=== PATIENT | female | born 1980 | race Caucasian/White ===

== ENCOUNTER 2021-04-22 07:36 | Day surgery (SDC) | payer OTHER ==
[2021-04-20 15:58] VITALS: BMI 33.6
--- NOTE | 2021-04-22 06:45 | P.HPOB ---
History of Present Illness H&P Date: 04/22/21 Chief Complaint: family planning 40-year-old presents for laparoscopic tubal ligation. Review of Systems All systems: negative Constitutional: Denies chills, Denies fever Eyes: denies blurred vision, denies pain Ears, nose, mouth and throat: Denies headache, Denies sore throat Cardiovascular: Denies chest pain, Denies shortness of breath Respiratory: Denies cough Gastrointestinal: Denies abdominal pain, Denies diarrhea, Denies nausea, Denies vomiting Genitourinary: Denies dysuria, Denies hematuria Musculoskeletal: Denies myalgias Integumentary: Denies pruritus, Denies rash Neurological: Denies numbness, Denies weakness Psychiatric: Denies anxiety, Denies depression Endocrine: Denies fatigue, Denies weight change Past Medical History Past Medical History: Diabetes Mellitus Additional Past Medical History / Comment(s): HAD DIABETES-RESOLVED WITH GASTRIC BYPASS. MIGRAINES History of Any Multi-Drug Resistant Organisms: None Reported Past Surgical History: Bariatric Surgery Additional Past Surgical History / Comment(s): BARIATRIC SX 2017 Past Anesthesia/Blood Transfusion Reactions: Previous Problems w/ Anesthesia Additional Past Anesthesia/Blood Transfusion Reaction / Comment(s): HAD LOW B/P WITH HIGH HEART RATE WITH GASTRIC BYPASS Smoking Status: Never smoker - Past Family History Mother History Unknown: Yes Additional Family Medical History / Comment(s): PT ADOPTED -BIOLOGICAL FAMILY HX UNKNOWN Father History Unknown: Yes Medications and Allergies Home Medications Medication Instructions Recorded Confirmed Type Topiramate [Topamax] 100 mg PO BID 04/20/21 04/20/21 History buPROPion XL [Wellbutrin XL] 150 mg PO DAILY 04/20/21 04/20/21 History Allergies Allergy/AdvReac Type Severity Reaction Status Date / Time Penicillins Allergy Unknown Verified 04/20/21 15:51 Childhood Exam Osteopathic Statement: *. No significant issues noted on an osteopathic structural exam other than those noted in the History and Physical/Consult. Heart: Regular rate and rhythm Lungs: Clear to auscultation bilaterally Abdomen: Soft, nontender Extremities: Negative Homans sign Assessment and Plan (1) Family planning Status: Acute Code(s): Z30.09 - ENCOUNTER FOR OTH GENERAL CNSL AND ADVICE ON CONTRACEPTION SNOMED Code(s): 317474222 Plan: Laparoscopic tubal ligation
[~2021-04-22 07:36] MED LIST: Pre Op ABX Message 1 EACH MISC MISCELLANE ONE
[2021-04-22] MEDS ORDERED: ONDANSETRON 4 MG/2 ML VIAL ONE (08:24)
[2021-04-22] MEDS ORDERED: LIDOCAINE 1% (10MG/ML) FOR IV START INTRADERMA ONE (08:30)
[2021-04-22] MEDS ORDERED: LACTATED RINGERS 1,000 ML IV ONE ×2 (08:30→10:50)
[2021-04-22] MEDS ORDERED: MIDAZOLAM 2 MG/2 ML VIAL IV ONE (08:40)
[2021-04-22] MEDS ORDERED: DEXAMETHASONE SOD PHOSPHATE 4 MG/ML 1 ML VIAL IV ONE (08:40)
[2021-04-22] MEDS ORDERED: PROPOFOL 10 MG/ML 20 ML VIAL IV ONE (10:18)
[2021-04-22] MEDS ORDERED: GLYCOPYRROLATE 0.2 MG/ML 2 ML VIAL ONE (10:18)
[2021-04-22] MEDS ORDERED: fentaNYL (PF) 50 MCG/ML 2 ML AMP ONE (10:18)
[2021-04-22] MEDS ORDERED: SUCCINYLCHOLINE CHLORIDE 100 MG/5 ML SYR IV ONE (10:18)
[2021-04-22] MEDS ORDERED: ROCURONIUM 10 MG/ML (5 ML VIAL) IV ONE (10:18)
[2021-04-22] MEDS ORDERED: KETOROLAC 15 MG/ML 1 ML VIAL ONE (10:18)
[2021-04-22] MEDS ORDERED: NEOSTIGMINE 1 MG/ML 10 ML VIAL ONE (10:18)
[2021-04-22] MEDS ORDERED: HYDROmorphone (PF) 1 MG/ML ONE (10:18)
[2021-04-22] MEDS ORDERED: MIDAZOLAM 2 MG/2 ML VIAL ONE (10:18)
[2021-04-22] MEDS ORDERED: LIDOCAINE 1% INJ 10MG/ML (20 ML MDV) ONE (10:18)
[2021-04-22] MEDS ORDERED: BUPIVACAINE (PF) 0.25% 30 ML VIAL SQ ONE ×2 (10:39→10:44)
[2021-04-22 10:59] VITALS: TEMP 98.8
[2021-04-22 11:03] LABS: Glucose,Whole Blood 225 mg/dL (75-99)
[2021-04-22] MEDS ORDERED: diphenhydrAMINE 50 MG/ML 1 ML VIAL ONE (11:25)
[2021-04-22] MEDS ORDERED: diphenhydrAMINE 50 MG/ML 1 ML VIAL IVP ONE (11:27)
[2021-04-22 11:55] VITALS: RESP 16
[2021-04-22 12:06] VITALS: BP 113/72; PULSE 72
--- NOTE | 2021-04-22 12:07 | P.OP ---
Date of Procedure: 04/22/21 Preoperative Diagnosis: 1. family planning Postoperative Diagnosis: 1. family planning Procedure(s) Performed: Laparoscopic tubal ligation Anesthesia: ANNA Surgeon: Anna Kern Estimated Blood Loss (ml): 5 IV fluids (ml): 400 Urine output (ml): 230 Pathology: none sent Condition: stable Disposition: PACU Operative Findings: Normal uterus, tubes, ovaries. Description of Procedure: Patient was taken to the operating room where general anesthesia was obtained without difficulty. She was prepped and draped in normal sterile fashion in the dorsal lithotomy position, legs placed in the Curtis stirrups. Bladder drained of all urine. [place] speculum placed in the vagina and the anterior lip the cervix was grasped with single-tooth tenaculum. The uterus is sounded to 7 cm and the kroner manipulator was placed. Attention was then turned to the abdomen and gloves were changed. A 10 mm infraumbilical incision was made the scalpel and 10 mm optical trocar was placed under direct visualization. A 5 mm suprapubic Incision was made and a 5 mm optical trocar was placed under direct visualization. Survey of the pelvis revealed normal uterus tubes and ovaries. The left fallopian tube was grasped with a Kleppinger and fulgurated 2-3 cm on this side in the ampullar portion. The right fallopian tube was grasped with a Kleppinger and fulgurated 2-3 cm in the ampullar portion. All instruments were then removed from the abdomen and vagina. The 10 mm infraumbilical incision was closed with 0 Vicryl and the fascial layer and then 4-0 Vicryl in a subcuticular fashion. The 5 mm incision was closed with 4-0 Vicryl in a subcuticular fashion. Patient tolerated procedure well, sponge and instrument counts correct 2 and she was taken to recovery room in stable condition.
== END 2021-04-22 13:05 | disposition home or self-care (01) ==
LOC: OR 07:36
PROVIDERS: ATTEND Obstetrics & Gynecology
DX: Z30.2 Encounter for sterilization (principal); Z98.84 Bariatric surgery status; Z79.818 Long term (current) use of other agents affecting estrogen receptors and estrogen levels; Z79.899 Other long term (current) drug therapy; Z88.0 Allergy status to penicillin
CPT/HCPCS: 81025; 58670; J2250; J1200; J1100; J2710; J2405; J2001; J3010; J1170; J1885; J0330; J2704

== ENCOUNTER 2021-06-01 04:15 | Emergency (ER) | payer OTHER ==
[2021-06-01 04:29] VITALS: TEMP 98.8
--- NOTE | 2021-06-01 04:39 | ED ---
Psych HPI - General Chief Complaint: Psychiatric Symptoms Stated Complaint: Altered mental status Time Seen by Provider: 06/01/21 04:29 Source: patient, EMS Mode of arrival: EMS - History of Present Illness Initial Comments: This patient is a 40-year-old woman who presents to the hospital to be evaluated for which she thinks is a reaction to some cannabinoids that she smoked. Patient states that she started feeling she will was . MD Complaint: altered mental status -: hour(s) Associated Psychiatric Symptoms: racing thoughts, delusions Quality: intermittent Improves With: none Worsens With: drug use Context: recent drug abuse - Related Data Home Medications Medication Instructions Recorded Confirmed Topiramate [Topamax] 100 mg PO BID 04/20/21 04/20/21 buPROPion XL [Wellbutrin XL] 150 mg PO DAILY 04/20/21 04/20/21 Previous Rx's Medication Instructions Recorded Acetaminophen-Codeine 300-30mg 2 tab PO Q6H PRN #20 tablet 04/22/21 [Tylenol #3] Ibuprofen [Motrin] 600 mg PO Q6HR PRN #30 tab 04/22/21 Allergies Allergy/AdvReac Type Severity Reaction Status Date / Time Penicillins Allergy Unknown Verified 04/22/21 08:02 Childhood Review of Systems ROS Statement: Those systems with pertinent positive or pertinent negative responses have been documented in the HPI. ROS Other: All systems not noted in ROS Statement are negative. Past Medical History Past Medical History: Diabetes Mellitus Additional Past Medical History / Comment(s): HAD DIABETES-RESOLVED WITH GASTRIC BYPASS. MIGRAINES History of Any Multi-Drug Resistant Organisms: None Reported Past Surgical History: Bariatric Surgery Additional Past Surgical History / Comment(s): BARIATRIC SX 2017 Past Anesthesia/Blood Transfusion Reactions: Previous Problems w/ Anesthesia Additional Past Anesthesia/Blood Transfusion Reaction / Comment(s): HAD LOW B/P WITH HIGH HEART RATE WITH GASTRIC BYPASS Past Psychological History: Anxiety Smoking Status: Never smoker Past Alcohol Use History: None Reported Past Drug Use History: Marijuana - Past Family History Mother History Unknown: Yes Additional Family Medical History / Comment(s): PT ADOPTED -BIOLOGICAL FAMILY HX UNKNOWN Father History Unknown: Yes Course Vital Signs 06/01/21 06/01/21 04:18 06:17 Temperature 98.8 F Pulse Rate 115 H 98 Respiratory 22 24 Rate Blood Pressure 114/90 O2 Sat by Pulse 99 99 Oximetry Disposition Clinical Impression: Drug-induced psychotic disorder Disposition: HOME SELF-CARE Condition: Good Instructions (If sedation given, give patient instructions): Cannabis Abuse (ED) Is patient prescribed a controlled substance at d/c from ED?: No Referrals: Mialna Wheeler [Primary Care Provider] - 1-2 days
[2021-06-01 08:02] VITALS: BP 132/84; PULSE 84; RESP 22
== END 2021-06-01 08:02 | disposition home or self-care (01) ==
LOC: EC 04:15
DX: F12.959 Cannabis use, unspecified with psychotic disorder, unspecified (principal); E11.9 Type 2 diabetes mellitus without complications; F41.9 Anxiety disorder, unspecified; F12.90 Cannabis use, unspecified, uncomplicated; Z79.1 Long term (current) use of non-steroidal anti-inflammatories (NSAID); Z79.899 Other long term (current) drug therapy
CPT/HCPCS: 99285

== ENCOUNTER 2021-06-28 16:25 | Emergency (ER) | payer OTHER ==
--- NOTE | 2021-06-28 16:51 | ED ---
Chest Pain HPI - General Stated Complaint: chest pain Time Seen by Provider: 06/28/21 16:25 Source: patient, EMS, RN notes reviewed Mode of arrival: EMS Limitations: no limitations - History of Present Illness Initial Comments: 40-year-old female history of anxiety who states she started Zoloft 3 days ago was told that she started developing chest pain coming get evaluated. She was playing with her estranged upper taking soccerball today when he started developing left-sided chest pain sharp in nature 5-6/10 severity no fevers chills nausea vomiting sweats or other symptoms she currently is pain-free she is not recall any incident S. She's had no cough fever no phlegm production. There is family history heart disease but only in the later age there is a history of blood clots and family however. No other current complaints or modifying factors MD Complaint: chest pain - Related Data Home Medications Medication Instructions Recorded Confirmed Topiramate [Topamax] 100 mg PO BID 04/20/21 04/20/21 buPROPion XL [Wellbutrin XL] 150 mg PO DAILY 04/20/21 04/20/21 Previous Rx's Medication Instructions Recorded Acetaminophen-Codeine 300-30mg 2 tab PO Q6H PRN #20 tablet 04/22/21 [Tylenol #3] Ibuprofen [Motrin] 600 mg PO Q6HR PRN #30 tab 04/22/21 Allergies Allergy/AdvReac Type Severity Reaction Status Date / Time Penicillins Allergy Unknown Verified 06/28/21 16:33 Childhood Review of Systems ROS Statement: Those systems with pertinent positive or pertinent negative responses have been documented in the HPI. ROS Other: All systems not noted in ROS Statement are negative. EKG Findings - EKG Results: EKG: interpreted by [facility], WNL, sinus rhythm, normal axis, normal QRS, normal ST/T, no acute changes (Normal sinus rhythm a 91. Interval 142 QRS duration 80 QT since QTC 362/[address]-T wave changes) Past Medical History Past Medical History: Diabetes Mellitus Additional Past Medical History / Comment(s): HAD DIABETES-RESOLVED WITH GASTRIC BYPASS. MIGRAINES History of Any Multi-Drug Resistant Organisms: None Reported Past Surgical History: Bariatric Surgery, Tubal Ligation Additional Past Surgical History / Comment(s): BARIATRIC SX 2017 Past Anesthesia/Blood Transfusion Reactions: Previous Problems w/ Anesthesia Additional Past Anesthesia/Blood Transfusion Reaction / Comment(s): HAD LOW B/P WITH HIGH HEART RATE WITH GASTRIC BYPASS Past Psychological History: Anxiety Smoking Status: Never smoker Past Alcohol Use History: None Reported Past Drug Use History: Marijuana - Past Family History Mother History Unknown: Yes Additional Family Medical History / Comment(s): PT ADOPTED -BIOLOGICAL FAMILY HX UNKNOWN Father History Unknown: Yes General Exam - General Exam Comments Initial Comments: This is a well-developed well-nourished awake alert oriented 3 female Limitations: no limitations General appearance: alert, in no apparent distress Head exam: Present: atraumatic, normocephalic, normal inspection Eye exam: Present: normal appearance, PERRL, EOMI. Absent: scleral icterus, conjunctival injection, periorbital swelling ENT exam: Present: normal exam, mucous membranes moist Neck exam: Present: normal inspection, full ROM, other (No surgery or bruits). Absent: tenderness, meningismus, lymphadenopathy Respiratory exam: Present: normal lung sounds bilaterally, chest wall tenderness (Tenderness palpation over left costal sternal margin no step-off or crepitation.). Absent: respiratory distress, wheezes, rales, rhonchi, stridor Cardiovascular Exam: Present: regular rate, normal rhythm, normal heart sounds. Absent: systolic murmur, diastolic murmur, rubs, gallop, clicks GI/Abdominal exam: Present: soft, normal bowel sounds. Absent: distended, tenderness, guarding, rebound, rigid Extremities exam: Present: normal inspection, full ROM, normal capillary refill. Absent: tenderness, pedal edema, joint swelling, calf tenderness Back exam: Present: normal inspection Neurological exam: Present: alert, oriented X3, CN II-XII intact Psychiatric exam: Present: normal affect, normal mood Skin exam: Present: warm, dry, intact, normal color. Absent: rash Course Vital Signs 06/28/21 16:33 Temperature 98.4 F Pulse Rate 95 Respiratory 18 Rate Blood Pressure 114/78 O2 Sat by Pulse 98 Oximetry Chest Pain MDM - MDM Imaging reviewed no acute findings. I did discuss findings with the patient other than a mildly elevated lipase level since the unremarkable labs patient does recall that her dog did jump on her a few days ago right over the same area that hurt when I palpated earlier. The presentation is consistent with a costochondritic strain he'll be discharged we did discuss anti-inflammatories. Patient also does deny drinking alcohol. Disposition Clinical Impression: Costochondritis, Chest wall syndrome Disposition: HOME SELF-CARE Condition: Good Instructions (If sedation given, give patient instructions): Costochondritis (ED) Additional Instructions: Tylenol or Motrin for pain Is patient prescribed a controlled substance at d/c from ED?: No Referrals: Milana Wheeler [Primary Care Provider] - 1-2 days
[2021-06-28 16:56] LABS: Basophils # (A) 0.1 k/uL (0-0.2); Basophils % (A) 1 %; Eosinophils # (A) 0.2 k/uL (0-0.7); Eosinophils % (A) 2 %; HCT 45.1 % (34.0-46.0); HGB 15.4 gm/dL (11.4-16.0); Lymphocytes # (A) 3.2 k/uL (1.0-4.8); Lymphocytes % (A) 35 %; MCH 31.4 pg (25.0-35.0); MCHC 34.1 g/dL (31.0-37.0); Mean Platelet Volume 7.8; Monocytes # (A) 0.6 k/uL (0-1.0); Monocytes % (A) 7 %; Neutrophils # (A) 4.8 k/uL (1.3-7.7); Neutrophils % (A) 53 %; Platelet Count 299 k/uL (150-450); WBC 9.1 k/uL (3.8-10.6)
[2021-06-28 17:07] LABS: ALT 48 U/L (4-34); AST 28 U/L (14-36); African American GFR (CKD) >90 (>60 ml/min/1.73 sqM); Albumin 4.2 g/dL (3.5-5.0); Alkaline Phosphatase 55 U/L (38-126); Anion Gap 12 mmol/L; Blood Urea Nitrogen 19 mg/dL (7-17); Calcium 9.2 mg/dL (8.4-10.2); Carbon Dioxide 19 mmol/L (22-30); Chloride 107 mmol/L (98-107); Glucose 171 mg/dL (74-99); Lipase 388 U/L (23-300); Magnesium 1.8 mg/dL (1.6-2.3); Non-African American GFR(CKD) 86 (>60 ml/min/1.73 sqM); Potassium 4.2 mmol/L (3.5-5.1); Sodium 138 mmol/L (137-145); Total Bilirubin 0.3 mg/dL (0.2-1.3); Total Protein 6.8 g/dL (6.3-8.2)
[2021-06-28 17:19] LABS: INR 0.9 (<1.2); Partial Thromboplastin Time 22.6 sec (22.0-30.0); Prothrombin Time 10.2 sec (9.0-12.0)
--- NOTE | 2021-06-28 17:23 | XR ---
EXAMINATION TYPE: XR chest 2V DATE OF EXAM: 06/28/2021 COMPARISON: NONE HISTORY: Chest pain TECHNIQUE: Frontal and lateral views of the chest are obtained. FINDINGS: There is no focal air space opacity, pleural effusion, or pneumothorax seen. The cardiac silhouette size is within normal limits. The osseous structures are intact. IMPRESSION: No acute cardiopulmonary process.
[2021-06-28 18:29] VITALS: BP 114/82; PULSE 77; RESP 16; TEMP 97.8
== END 2021-06-28 18:24 | disposition home or self-care (01) ==
LOC: EC 16:25
DX: R07.1 Chest pain on breathing (principal); M94.0 Chondrocostal junction syndrome [Tietze]; E11.9 Type 2 diabetes mellitus without complications; F41.9 Anxiety disorder, unspecified; F12.90 Cannabis use, unspecified, uncomplicated; Z88.0 Allergy status to penicillin; Z98.84 Bariatric surgery status; Z98.51 Tubal ligation status
CPT/HCPCS: 36415; 71046; 80053; 83690; 83735; 84484; 85025; 85379; 85610; 85730; 93005; 99285

== ENCOUNTER → 2021-12-10 | Outpatient (CLI) | payer OTHER ==
--- NOTE | 2021-12-13 08:05 | US ---
EXAMINATION TYPE: US pelvic complete DATE OF EXAM: 12/10/2021 COMPARISON: NONE CLINICAL HISTORY: R10.2 PELVIC AND PERINEAL PAIN. Pelvic pain. Hx ovarian cysts. Hx 4 miscarriages. T ubal ligation in April 2021. A4. TECHNIQUE: Transabdominal (TA). Transabdominal sonographic images of the pelvis were acquired. Date of LMP: 11/24/2021 EXAM MEASUREMENTS: Uterus: 8.5 x 5.2 x 3.7 cm Endometrial Stripe: 0.42 cm Right Ovary: 3.9 x 3.0 x 1.8 cm Left Ovary: 3.2 x 2.7 x 2.6 cm 1. Uterus: Anteverted No abnormalities seen. 2. Endometrium: Measures 0.42 cm. 3. Right Ovary: Appears wnl 4. Left Ovary: Appears wnl 5. Bilateral Adnexa: Appears wnl 6. Posterior cul-de-sac: Appears wnl Anteverted uterus. Endometrial stripe is thin for secretory phase of menstrual cycle. No free fluid i n pelvis. Both ovaries symmetric and normal in size. No suspicious adnexal masses. IMPRESSION: As above.
== END | disposition home or self-care (01) ==
LOC: RADUSWWP 14:55
PROVIDERS: ATTEND Obstetrics & Gynecology
DX: R10.2 Pelvic and perineal pain (principal)
CPT/HCPCS: 76856